=== PATIENT | male | born 1955 | race Hispanic/Latino ===

== ENCOUNTER 2021-02-04 14:33 | Emergency (ER) | payer MEDICARE ==
[2021-02-04] MEDS ORDERED: HYDROCODONE/ACETAMINOPHEN 10/325 MG TAB ONE (15:16)
[2021-02-04] MEDS ORDERED: KETAMINE HCL 100 MG/ML 5ML VIAL IJ ONE (15:51)
== END 2021-02-04 18:22 | disposition home or self-care (01) ==
LOC: EDH 14:33
DX: S43.004A Unspecified dislocation of right shoulder joint, initial encounter (principal); S42.141A Displaced fracture of glenoid cavity of scapula, right shoulder, initial encounter for closed fracture; Z72.0 Tobacco use; W18.39XA Other fall on same level, initial encounter; Y93.89 Activity, other specified; Y92.89 Other specified places as the place of occurrence of the external cause; Y99.8 Other external cause status
CPT/HCPCS: 23650; 73020; 73030; 73060; 99285; J3490

== ENCOUNTER 2021-06-26 08:56 | Emergency (ER) | payer MEDICARE ==
[~2021-06-26] VITALS: Ht 167.6 cm; Wt 59.0 kg
[2021-06-26 09:00] VITALS: BP 117/67
[2021-06-26 09:54] LABS: CREATININE 0.8 mg/dL (0.5-1.5); POTASSIUM 3.8 mmol/L (3.5-5.1)
[2021-06-26 10:19] LABS: BASOPHILS % (AUTO) 1.1 % (0.0-5.0); EOSINOPHILS % (AUTO) 1.3 % (0.0-8.0); HEMATOCRIT 36.4 % (42-54); LYMPHOCYTES % (AUTO) 27.4 % (21.0-51.0); MEAN CORPUSCULAR HEMOGLOBIN 34.1 pg (27.0-33.0); MEAN CORPUSCULAR HGB CONC 33.8 g/dL (32.0-36.0); MEAN CORPUSCULAR VOLUME 100.8 fL (79-99); MONOCYTES % (AUTO) 13.7 % (3.0-13.0); NEUTROPHILS % (AUTO) 54.4 % (40.0-77.0); PLATELET COUNT (AUTO) 190 K/uL (130-400); RED BLOOD CELL COUNT(AUTO) 3.61 MIL/uL (4.50-6.20); RED CELL DISTRIBUTION WIDTH 13.4 % (11.0-15.5); WHITE BLOOD COUNT (AUTO) 3.8 K/uL (4.8-10.8)
[2021-06-26] MEDS ORDERED: IOHEXOL-350 75 ML VIAL IV ONE (11:18)
== END 2021-06-26 14:32 | disposition home or self-care (01) ==
LOC: EDH 08:56
DX: S30.1XXA Contusion of abdominal wall, initial encounter (principal); M79.605 Pain in left leg; V29.88XA Motorcycle rider (driver) (passenger) injured in other specified transport accidents, initial encounter; Y93.55 Activity, bike riding; Y92.89 Other specified places as the place of occurrence of the external cause; Y99.8 Other external cause status
CPT/HCPCS: 36415; 73706; 76882; 80048; 85025; Q9967